=== PATIENT | male | born 1965 | race Two or more races ===

== ENCOUNTER 2016-11-29 10:34 | Inpatient (IN) | payer MEDICAID, OTHER ==
[2016-11-29] VITALS (14 sets, daily range): BP systolic 83–113; BP diastolic 38–72
[~2016-11-29] VITALS: Ht 167.6 cm; Wt 81.3 kg
[2016-11-29] MEDS ORDERED: SODIUM CHLORIDE 0.9% 1,000 ML IVB ONE (10:40)
[2016-11-29] MEDS ORDERED: PANTOPRAZOLE SODIUM 40 MG/10 ML VIAL IV STA (10:40)
[2016-11-29] MEDS ORDERED: ONDANSETRON HCL 4 MG/2 ML VIAL IV ONE (10:45)
[2016-11-29 11:38] LABS: Partial Thromboplastin Time 26.1 sec (22.64-33.71)
[2016-11-29 11:41] LABS: Basophils # (auto) 0 uL; Basophils % (auto) 0.3 % (0.0-2.0); DEFINITIVE VIEW TRANSMISSION; Eosinophils # (auto) 0 uL; Hematocrit 21.6 % (41.0-53.0); Hemoglobin 7.2 g/dL (13.5-17.5); Lymphocytes # (auto) 1.1 uL; Lymphocytes % (auto) 11.5 % (10.0-50.0); Mean Corpuscular Hemoglobin 32.7 pg (28.0-32.0); Mean Corpuscular Hgb Conc. 33.3 g/dL (32.0-36.0); Mean Corpuscular Volume 98.1 fL (80.0-100.0); Mean Platelet Volume 9.7 fL (7.4-10.4); Monocytes # (auto) 0.6 uL; Monocytes % (auto) 6.8 % (0.0-12.0); Neutrophils # (auto) 7.5 uL; Neutrophils % (auto) 81.4 % (37.0-80.0); Platelet Count (auto) 140 10^3/uL (140-450); Red Cell Distribution Width 16.2 % (11.6-16.0); White Blood Cell 9.2 10^3/uL (4.4-10.8)
[2016-11-29 11:49] LABS: Albumin 2.6 g/dL (3.4-5.0); BUN/Creatinine Ratio 25.8; Bilirubin, Total 0.6 mg/dL (0.2-1.0); Calcium 8.2 mg/dL (8.5-10.1); Magnesium 2.2 mg/dL (1.6-2.6); Potassium 3.1 mmol/L (3.5-5.1); Total Protein 6.6 g/dL (6.4-8.2)
[2016-11-29 12:14] LABS: INR 1.23 (0.9-1.15); Prothrombin Time 13.3 sec (9.37-12.3)
[2016-11-29] MEDS ORDERED: POTASSIUM CHL 20MEQ/100ML 100 ML IV ONE (12:30)
[2016-11-29] MEDS ORDERED: THIAMINE HCL 100 MG/ML 2ML VIAL IV ONE (13:00)
[2016-11-29] MEDS ORDERED: LORazepam 2MG/ML-1ML VIAL IV PRN (13:00)
[2016-11-29] MEDS ORDERED: MORPHINE SULF INJ 2 MG/ML SYRINGE 1ML IV PRN ×2 (13:00)
[2016-11-29] MEDS ORDERED: OCTREOTIDE ACETATE 100 MCG in SODIUM CHL 0.9% 50 ML IV ONE (13:00)
[2016-11-29] MEDS ORDERED: NITROGLYCERIN 0.4 MG SL TAB SL PRN (13:00)
[2016-11-29] MEDS ORDERED: PROCHLORPERAZINE EDISYLATE 5 MG/ML 2ML VIAL IV ONE (13:15)
[2016-11-29] MEDS: PANTOPRAZOLE SODIUM 80 MG in SODIUM CHL 0.9% 60 ML IV SCH ×2 (13:36→23:11)
[2016-11-29] MEDS: SODIUM CHLORIDE 0.9% 1,000 ML IV SCH ×2 (13:39→20:21)
[2016-11-29] MEDS: OCTREOTIDE ACETATE 500 MCG in SODIUM CHL 0.9% 99 ML IV SCH ×2 (13:56→23:11)
[2016-11-29] MEDS: THIAMINE INJ 100 MG, MULTIPLE VITAMIN 10 ML, FOLIC ACID 1 MG, MAGNESIUM SULF SDV 50% 8 ... IV SCH ×5 (14:51)
[2016-11-29] MEDS: ONDANSETRON HCL 4 MG/2 ML VIAL IV PRN ×2 (15:43→23:31)
[2016-11-29 18:51] LABS: Hematocrit 19.8 % (41.0-53.0)
[2016-11-29 19:25] LABS: Hemoglobin 6.4 g/dL (13.5-17.5)
[2016-11-29] MEDS: PHENYLEPHRINE INJ 20 MG in SODIUM CHL 0.9% 250 ML IV SCH (21:34)
[2016-11-30] VITALS (12 sets, daily range): BP systolic 88–157; BP diastolic 47–106
[2016-11-30] MEDS: SODIUM CHLORIDE 0.9% 1,000 ML IV SCH ×2 (02:37→07:55)
[2016-11-30 03:19] LABS: Basophils # (auto) 0 uL; Basophils % (auto) 0.2 % (0.0-2.0); DEFINITIVE VIEW TRANSMISSION; Eosinophils # (auto) 0 uL; Hematocrit 24.4 % (41.0-53.0); Hemoglobin 8.1 g/dL (13.5-17.5); Lymphocytes # (auto) 1.6 uL; Lymphocytes % (auto) 8.2 % (10.0-50.0); Mean Corpuscular Hemoglobin 31.4 pg (28.0-32.0); Mean Corpuscular Hgb Conc. 33.5 g/dL (32.0-36.0); Mean Corpuscular Volume 93.8 fL (80.0-100.0); Mean Platelet Volume 10.2 fL (7.4-10.4); Monocytes # (auto) 1.7 uL; Monocytes % (auto) 8.7 % (0.0-12.0); Neutrophils # (auto) 16.5 uL; Neutrophils % (auto) 82.9 % (37.0-80.0); Platelet Count (auto) 110 10^3/uL (140-450); Red Cell Distribution Width 16.1 % (11.6-16.0); White Blood Cell 19.9 10^3/uL (4.4-10.8)
[2016-11-30 03:26] LABS: Albumin 2.3 g/dL (3.4-5.0); BUN/Creatinine Ratio 25.8; Calcium 6.4 mg/dL (8.5-10.1); Partial Thromboplastin Time 27.9 sec (22.64-33.71); Potassium 4.9 mmol/L (3.5-5.1)
[2016-11-30 03:28] LABS: Bilirubin, Total 1.1 mg/dL (0.2-1.0); Total Protein 5.2 g/dL (6.4-8.2)
[2016-11-30 03:33] LABS: INR 1.37 (0.9-1.15); Prothrombin Time 14.8 sec (9.37-12.3)
[2016-11-30 03:55] LABS: Urine RBC None Seen /hpf (0 - 3)
[2016-11-30 04:30] LABS: Urine Bilirubin Negative (Negative); Urine Blood Negative /uL (Negative); Urine Color Yellow (Yellow); Urine Hyaline Cast FEW /lpf (0 - 2); Urine Nitrite Negative (Negative); Urine Squamous Epithelial Cell FEW /hpf (<5); Urine Urobilinogen Normal (Negative); Urine pH 5.5 (5.0-8.0)
[2016-11-30 04:32] LABS: Urine Glucose 4+ mg/dL (Normal); Urine Ketone 1+ (Negative)
[2016-11-30] MEDS: PIPERACILLIN-TAZOB 3.375GM 100 ML IV SCH ×3 (05:33→17:27)
[2016-11-30] MEDS: PHENYLEPHRINE INJ 20 MG in SODIUM CHL 0.9% 250 ML IV SCH (05:55)
[2016-11-30 06:01] LABS: Lactic Acid w/Reflex 3.6 mmol/L (0.4-2.0)
[2016-11-30 06:08] LABS: REFLEX LACTIC ACID YES OR NO YES
[2016-11-30] MEDS: PANTOPRAZOLE SODIUM 80 MG in SODIUM CHL 0.9% 60 ML IV SCH (07:55)
[2016-11-30] MEDS: OCTREOTIDE ACETATE 500 MCG in SODIUM CHL 0.9% 99 ML IV SCH ×2 (07:56→17:16)
[2016-11-30] MEDS ORDERED: LIDOCAINE VISCOUS 2% 15ML UD ONE (08:52)
[2016-11-30] MEDS ORDERED: SODIUM CHLORIDE LOCK 10 ML ONE (08:52)
[2016-11-30] MEDS ORDERED: EPINEPHrine HCL 1 MG/10 ML SYRG ONE (08:52)
[2016-11-30] MEDS ORDERED: FLUMAZENIL 0.1 MG/ML INJ 10ML MDV IV ONE (08:53)
[2016-11-30] MEDS ORDERED: fentaNYL CITRATE 100 MCG/2 ML VL ONE (08:53)
[2016-11-30] MEDS ORDERED: NALOXONE HCL 0.4 MG/ML VIAL ONE (08:53)
[2016-11-30] MEDS ORDERED: MIDAZOLAM HCL 5 MG/ML-1ML VIAL ONE (08:53)
[2016-11-30] MEDS ORDERED: diphenhdrAMINE HCL 50 MG/1 ML VL ONE (08:53)
[2016-11-30] MEDS ORDERED: BENZOCAINE (DENTAL) 20 % SPRAY 60ML MT ONE (10:21)
[2016-11-30] MEDS: THIAMINE INJ 100 MG, MULTIPLE VITAMIN 10 ML, FOLIC ACID 1 MG, MAGNESIUM SULF SDV 50% 8 ... IV SCH ×5 (13:37)
[2016-11-30] MEDS: PANTOPRAZOLE SODIUM 40 MG/10 ML VIAL IV SCH (22:05)
[2016-12-01] MEDS: PIPERACILLIN-TAZOB 3.375GM 100 ML IV SCH ×3 (00:14→11:44)
[2016-12-01 05:00] VITALS: BP 154/96
[2016-12-01] MEDS: OCTREOTIDE ACETATE 500 MCG in SODIUM CHL 0.9% 99 ML IV SCH (05:09)
[2016-12-01 05:50] LABS: Basophils # (auto) 0.1 uL; Basophils % (auto) 0.5 % (0.0-2.0); Eosinophils # (auto) 0.1 uL; Eosinophils % (auto) 0.9 % (0.0-7.0); Hematocrit 27.3 % (41.0-53.0); Hemoglobin 8.9 g/dL (13.5-17.5); Lymphocytes # (auto) 2.4 uL; Lymphocytes % (auto) 17.7 % (10.0-50.0); Mean Corpuscular Hemoglobin 30.9 pg (28.0-32.0); Mean Corpuscular Hgb Conc. 32.8 g/dL (32.0-36.0); Mean Corpuscular Volume 94.3 fL (80.0-100.0); Mean Platelet Volume 9.3 fL (7.4-10.4); Monocytes # (auto) 1.5 uL; Monocytes % (auto) 10.8 % (0.0-12.0); Neutrophils # (auto) 9.7 uL; Neutrophils % (auto) 70.1 % (37.0-80.0); Platelet Count (auto) 97 10^3/uL (140-450); Red Cell Distribution Width 16.5 % (11.6-16.0); White Blood Cell 13.8 10^3/uL (4.4-10.8)
[2016-12-01 06:18] LABS: Albumin 2.5 g/dL (3.4-5.0); BUN/Creatinine Ratio 28.7; Bilirubin, Total 1.4 mg/dL (0.2-1.0); Calcium 6.7 mg/dL (8.5-10.1); Potassium 3.6 mmol/L (3.5-5.1); Total Protein 5.8 g/dL (6.4-8.2)
[2016-12-01 09:00] VITALS: BP 146/93
[2016-12-01] MEDS: PANTOPRAZOLE SODIUM 40 MG/10 ML VIAL IV SCH ×2 (09:52→21:22)
[2016-12-01] MEDS ORDERED: MULTIPLE VITAMIN TAB PO ONE (12:30)
[2016-12-01] MEDS ORDERED: THIAMINE HCL 100 MG TAB PO ONE (12:30)
[2016-12-01 13:00] VITALS: BP 150/83
[2016-12-01] MEDS ORDERED: SODIUM CHLORIDE 0.9% 1,000 ML IV SCH (13:00)
[2016-12-01] MEDS ORDERED: PROPRANOLOL HCL 20 MG TAB PO ONE ×2 (14:45)
[2016-12-01] MEDS: CIPROFLOXACIN HCL 500 MG TAB PO SCH (16:48)
[2016-12-01 17:16] VITALS: BP 141/92
[2016-12-01] MEDS: PROPRANOLOL HCL 20 MG TAB PO SCH (21:22)
[2016-12-01 22:00] VITALS: BP 150/92
[2016-12-02] MEDS: CIPROFLOXACIN HCL 500 MG TAB PO SCH ×2 (03:11→14:26)
[2016-12-02 05:08] VITALS: BP 147/83
[2016-12-02] MEDS: PROPRANOLOL HCL 20 MG TAB PO SCH ×3 (05:43→22:29)
[2016-12-02 06:01] LABS: Basophils # (auto) 0 uL; Basophils % (auto) 0.3 % (0.0-2.0); Eosinophils # (auto) 0.2 uL; Eosinophils % (auto) 2.3 % (0.0-7.0); Hematocrit 26.6 % (41.0-53.0); Hemoglobin 8.9 g/dL (13.5-17.5); Lymphocytes # (auto) 2.6 uL; Mean Corpuscular Hemoglobin 31.3 pg (28.0-32.0); Mean Corpuscular Hgb Conc. 33.4 g/dL (32.0-36.0); Mean Corpuscular Volume 93.9 fL (80.0-100.0); Mean Platelet Volume 9.4 fL (7.4-10.4); Monocytes # (auto) 1.2 uL; Monocytes % (auto) 11.8 % (0.0-12.0); Neutrophils # (auto) 6.3 uL; Neutrophils % (auto) 60.6 % (37.0-80.0); Platelet Count (auto) 107 10^3/uL (140-450); Red Cell Distribution Width 16.3 % (11.6-16.0); White Blood Cell 10.4 10^3/uL (4.4-10.8)
[2016-12-02 07:39] VITALS: BP 139/75
[2016-12-02] MEDS ORDERED: CIPROFLOXACIN HCL 500 MG TAB PO SCH (10:00)
[2016-12-02] MEDS: THIAMINE HCL 100 MG TAB PO SCH (10:08)
[2016-12-02] MEDS: PANTOPRAZOLE SODIUM 40 MG/10 ML VIAL IV SCH (10:09)
[2016-12-02] MEDS: MULTIPLE VITAMIN TAB PO SCH (10:09)
[2016-12-02 11:44] VITALS: BP 120/76
[2016-12-02] MEDS: traMADol HCL 50 MG TAB PO PRN (14:27)
[2016-12-02 16:30] VITALS: BP 117/70
[2016-12-02 20:57] VITALS: BP 118/72
[2016-12-02] MEDS: PANTOPRAZOLE 40 MG TAB PO SCH (22:29)
[2016-12-03] MEDS: CIPROFLOXACIN HCL 500 MG TAB PO SCH ×2 (02:47→14:29)
[2016-12-03 04:54] VITALS: BP 139/74
[2016-12-03] MEDS: PROPRANOLOL HCL 20 MG TAB PO SCH ×2 (05:53→14:00)
[2016-12-03 08:02] VITALS: BP 108/79
[2016-12-03] MEDS: THIAMINE HCL 100 MG TAB PO SCH (08:57)
[2016-12-03] MEDS: PANTOPRAZOLE 40 MG TAB PO SCH (08:57)
[2016-12-03] MEDS: traMADol HCL 50 MG TAB PO PRN (08:57)
[2016-12-03] MEDS: MULTIPLE VITAMIN TAB PO SCH (08:57)
[2016-12-03 12:15] VITALS: BP 116/74
[2016-12-03 16:31] VITALS: BP 120/84
[2016-12-03 17:43] VITALS: BP 133/86
== END 2016-12-03 18:10 | disposition home or self-care (01) | DRG 720 ==
LOC: ER 10:34 → TELE 10:35 → EDBD 10:35 → TELE-E-ADS 11-30 18:09 → TELE-EAST 11-30 18:42 → EAST 12-01 19:54
PROVIDERS: ADMIT Internal Medicine; ATTEND Internal Medicine
PROC: 30233N1 Transfusion of Nonautologous Red Blood Cells into Peripheral Vein, Percutaneous Approach (ICD-10-PCS; 2016-11-29)
PROC: 0W3P8ZZ Control Bleeding in Gastrointestinal Tract, Via Natural or Artificial Opening Endoscopic (ICD-10-PCS; principal; 2016-11-30 11:30)
DX: A41.50 Gram-negative sepsis, unspecified (principal); I85.01 Esophageal varices with bleeding; E43 Unspecified severe protein-calorie malnutrition; K65.2 Spontaneous bacterial peritonitis; K76.6 Portal hypertension; K70.30 Alcoholic cirrhosis of liver without ascites; D50.0 Iron deficiency anemia secondary to blood loss (chronic); F10.10 Alcohol abuse, uncomplicated; E87.6 Hypokalemia; B96.89 Other specified bacterial agents as the cause of diseases classified elsewhere; K29.70 Gastritis, unspecified, without bleeding; K74.60 Unspecified cirrhosis of liver; K80.20 Calculus of gallbladder without cholecystitis without obstruction; K31.89 Other diseases of stomach and duodenum
CPT/HCPCS: 36415; 36430; 71010; 71250; 74176; 80053; 80074; 81001; 82150; 82270; 82962; 83036; 83605; 83690; 83735; 84484; 85014; 85018; 85025; 85379; 85610; 85730; 86850; 86900; 86901; 86920; 87040; 87045; 87076; 87899; 93005; 96361; 96365; 96367; 96375; 99291; C9113; J2250; J2405; J2543; J3480